=== PATIENT | female | born 1935 | race Caucasian/White ===

== ENCOUNTER 2017-07-04 18:06 | Emergency (ER) | payer MEDICARE, OTHER ==
[~2017-07-04] VITALS: Ht 162.6 cm; Wt 81.6 kg
[~2017-07-04 18:06] MED LIST: NEXIUM40 MG PO; REGLAN10 MG PO; Z.0.DYAZIDE 37.5-21 PO; Z.0.PLAVIX75 MG PO; Z.0.SYNTHROID25 MCG PO; Z.0.ZESTRIL5 MG PO; ZANTAC150 MG PO
--- NOTE | 2017-07-04 18:55 | Diagnostic Imaging Report ---
PROCEDURE: X-RAY CHEST, TWO VIEWS COMPARISON: Patients [facility], DX, CHEST 2 VIEWS, 05/16/2015, 21:41. INDICATIONS: LEFT SIDE WEAKNESS/NUMBNESS, CHEST PAIN FINDINGS: LUNGS: No soft tissue mass or infiltrate. Calcified granulomata in the right midlung field measure up to 5 mm and are stable. PLEURA: Stable eventration of the right diaphragm. No effusions or pneumothorax. HEART \T\ MEDIASTINUM: The heart is within normal size-limits. Aortic ectasia and arch calcifications are stable. No hilar lymphadenopathy. BONES \T\ SOFT TISSUES: Diffuse demineralization. Degenerative changes of the spine are stable. No focal osseous lesions. CONCLUSION: Stable chest with findings as described above. No active cardiopulmonary disease. Dictated by: Radha Victor M.D. on 07/04/2017 at 18:55 Electronically approved by: Radha Victor M.D. on 07/04/2017 at 18:55
--- NOTE | 2017-07-04 19:40 | Diagnostic Imaging Report ---
Examination: CT BRAIN WITHOUT CONTRAST History:Numbness and tingling of the left upper and lower extremities. Comparison studies:None Technique: Axial images were obtained from the skull base to the vertex. Coronal and sagittal images reconstructed from the axial data. Intravenous contrast: None Findings: Scalp: No abnormalities. Bones: No fractures, blastic or lytic lesions. Brain sulci: Appropriate for age. Ventricles: Normal in size and configuration. No hydrocephalus. Extra-axial space: No abnormalities. Parenchyma: There are mild patchy and confluent areas of hypoattenuation in the periventricular and subcortical and pontine white matter, nonspecific. No masses, hemorrhage, or acute or chronic cortical based vascular insults.. Sellar/suprasellar region: Empty sella. Craniocervical junction: Patent foramen magnum. No Chiari one malformation. Incidental findings: Atherosclerotic calcification of the cavernous and supraclinoid internal carotid and V4 segments of the bilateral vertebral arteries. Impression: 1. No acute intracranial abnormalities. 2. Mild chronic microvascular ischemic change. Signed by: Dr. Olivia Moise M.D. on 07/04/2017 7:37 PM
[2017-07-04 19:50] LABS: BASOPHILS % 0.5 % (0.0-1.0); EOSINOPHILS # (AUTO) 0.1 (0.0-0.4); EOSINOPHILS % 1.7 % (0.0-6.0); HEMATOCRIT 42.5 % (34.2-44.1); HEMOGLOBIN 14.5 g/dL (12.0-16.0); LYMPHOCYTES % 26.9 % (18.0-39.1); MEAN CORPUSCULAR HEMOGLOBIN 31.9 pg (28-32); MEAN CORPUSCULAR HGB CONC 34.1 g/dL (31-35); MEAN CORPUSCULAR VOLUME 93.6 fL (81-99); MONOCYTES # (AUTO) 0.6 (0.2-0.8); MONOCYTES % 8.4 % (4.4-11.3); NEUTROPHILS # (AUTO) 4.6 (2.1-6.9); NEUTROPHILS % 61.7 % (38.7-80.0); PLATELET COUNT 294 x10e3/uL (140-360); RED BLOOD COUNT 4.54 x10e6/uL (3.6-5.1); RED CELL DISTRIBUTION WIDTH 13.4 % (11.7-14.4)
[2017-07-04 19:58] LABS: INR 1.07; PROTHROMBIN TIME 13.1 seconds (11.9-14.5)
[2017-07-04 19:59] LABS: PARTIAL THROMBOPLASTIN TIME 27.8 seconds (23.8-35.5)
[2017-07-04 20:08] LABS: ALANINE AMINOTRANSFERASE 35 IU/L (0-55); ALBUMIN 3.8 g/dL (3.5-5.0); ALBUMIN/GLOBULIN RATIO 1.2 (0.8-2.0); ALKALINE PHOSPHATASE 66 IU/L (40-150); ANION GAP 15.8 mmol/L (8-16); BLOOD UREA NITROGEN 12 mg/dL (7-26); BUN/CREATININE RATIO 16 (6-25); CALCIUM 10.1 mg/dL (8.4-10.2); CARBON DIOXIDE 26 mmol/L (22-29); CHLORIDE 101 mmol/L (98-107); CREATINE KINASE 44 IU/L (29-168); CREATININE, SERUM 0.76 mg/dL (0.57-1.11); EST GLOMERULAR FILTRATION RATE > 60 ML/MIN (60-); GLUCOSE 136 mg/dL (74-118); POTASSIUM 3.8 mmol/L (3.5-5.1); SODIUM 139 mmol/L (136-145)
[2017-07-04 23:09] VITALS: BP 134/83
== END 2017-07-04 23:19 | disposition home or self-care (01) ==
LOC: ER 18:06
DX: R20.2 Paresthesia of skin (principal); M54.42 Lumbago with sciatica, left side; S46.812A Strain of other muscles, fascia and tendons at shoulder and upper arm level, left arm, initial encounter
CPT/HCPCS: 36415; 70450; 71046; 80053; 82550; 82553; 84484; 85025; 85610; 85730; 93005; 99283

== ENCOUNTER → 2017-08-04 | Outpatient (CLI) | payer MEDICARE ==
--- NOTE | 2017-08-05 09:35 | Diagnostic Imaging Report ---
History: Low back pain Comparison studies: None Technique: Sagittal, coronal and axial T2 , sagittal T1 and IR, axial spin density oblique. Intravenous contrast: None Findings: Number of lumbar vertebral bodies:5 Alignment: Straightening of the normal lordosis. Grade 2 anterolisthesis of L5 over S1 with bilateral L5 pars defect.Mild dextroscoliosis centered at L2-L3. Soft tissues: No T2 hyperintense inflammatory changes. Paraspinal muscles: Fatty infiltration of the paraspinal musculature more significant at the lumbosacral junction secondary to moderate atrophy. Lower thoracic cord:Normal in signal and morphology. The tip of the conus is at L1-L2. Cauda equina: No masses. No arachnoiditis. Vertebrae: Normal in height and signal intensity. No compression fractures, infection or neoplasm. Degenerative changes: L1-L2: Disc degeneration with loss of T2 signal and decreased intervertebral space. Mild diffuse disc bulge facet hypertrophy without significant canal stenosis and moderate right foraminal narrowing. L2-L3: Disc degeneration with loss of T2 signal and decreased intervertebral space. Mild diffuse disc bulge and mild facet hypertrophy results in no significant canal stenosis and mild right foraminal narrowing. L3-L4: Disc degeneration with loss of T2 signal and decreased intervertebral space. Mild diffuse disc bulge with superimposed right central disc protrusion and mild bilateral facet hypertrophy results in no significant canal stenosis or foraminal narrowing. L4-L5: Disc degeneration with loss of T2 signal. Diffuse disc bulge with superimposed central disc protrusion and mild bilateral facet hypertrophy results in no significant canal stenosis or foraminal narrowing. L5-S1: Disc degeneration with obliterated intervertebral space and minimal Modic type I changes. Uncoverage of the superior disc material secondary to grade 2 anterolisthesis. Bilateral pars defect and mild facet hypertrophy. Severe bilateral foraminal narrowing with impingement of the exiting bilateral L5 nerve roots. Additional findings: None IMPRESSION: Severe bilateral foraminal narrowing at L5-S1 with impingement of the exiting L5 nerve roots secondary to grade 2 anterolisthesis. Diffuse disc degeneration throughout the lumbar spine. Minimal Modic type I changes at L5-S1. Other degenerative changes without significant canal stenosis and mild multilevel foraminal narrowing as above. Signed by: DR Randal Denton M.D. on 08/05/2017 9:31 AM
== END ==
LOC: MRI 13:47
PROVIDERS: ATTEND Psychiatry & Neurology Pain Medicine
DX: M54.5 Low back pain (principal); M51.37 Other intervertebral disc degeneration, lumbosacral region
CPT/HCPCS: 72148

== ENCOUNTER 2018-01-04 14:30 | Emergency (ER) | payer MEDICARE, OTHER ==
[~2018-01-04] VITALS: Ht 162.6 cm; Wt 81.6 kg
[2018-01-04] MEDS ORDERED: ACETAMINOPHEN 325 MG TAB PO ONE (15:00)
[2018-01-04 15:06] VITALS: BP 156/80
== END 2018-01-04 15:17 | disposition home or self-care (01) ==
LOC: FSED 14:30
DX: S00.83XA Contusion of other part of head, initial encounter (principal); W22.8XXA Striking against or struck by other objects, initial encounter; Y92.511 Restaurant or cafe as the place of occurrence of the external cause; I10 Essential (primary) hypertension; E78.00 Pure hypercholesterolemia, unspecified; E03.9 Hypothyroidism, unspecified
CPT/HCPCS: 99282